=== PATIENT | female | born 1950 | race Caucasian/White ===

== ENCOUNTER 2016-03-09 12:35 | Emergency (ER) | payer BC, OTHER ==
[~2016-03-09] VITALS: Ht 152.4 cm; Wt 68.0 kg
[2016-03-09] MEDS ORDERED: ACETAMINOPHEN 500 MG TAB PO STA (12:43)
[2016-03-09] MEDS ORDERED: SOD CHLORIDE 0.9% 500 ML IV STA (12:43)
[2016-03-09 13:27] VITALS: Ht 152.4 cm; Wt 68.0 kg
[2016-03-09 13:49] LABS: BASOPHIL # 0.1 10^3/ul (0.0-0.1); BASOPHILS % 0.8 % (0.0-2.0); EOSINOPHILS % 0.1 % (0.0-7.0); HEMATOCRIT 35.5 % (37.0-47.0); LYMPHOCYTES # 0.9 10^3/ul (0.8-2.9); LYMPHOCYTES % 13.1 % (15.0-51.0); MEAN CORPUSCULAR HEMOGLOBIN 30.3 pg (29.0-33.0); MEAN CORPUSCULAR HGB CONC 33.7 g/dl (32.0-37.0); MEAN PLATELET VOLUME 7.6 fl (7.4-10.4); MONOCYTE # 0.8 10^3/ul (0.3-0.9); MONOCYTES % 11.8 % (0.0-11.0); NEUTROPHIL # 5.3 10^3/ul (1.6-7.5); NEUTROPHILS % 74.2 % (39.0-77.0); PLATELET COUNT 207 10^3/UL (140-440); RED BLOOD COUNT 3.95 10^6/ul (4.20-5.40); RED CELL DISTRIBUTION WIDTH 13.2 % (11.5-14.5); UNCORRECTED WBC 7.1 10^3/ul (4.8-10.8); WHITE BLOOD COUNT 7.1 10^3/ul (4.8-10.8)
[2016-03-09] MEDS ORDERED: METF500T4 PO (13:49)
[2016-03-09] MEDS ORDERED: LISI20TA11 PO (13:50)
[2016-03-09] MEDS ORDERED: SIMV20TA97 PO (13:50)
[2016-03-09 13:51] LABS: CONDITION 1
[2016-03-09] MEDS ORDERED: SERT50TA6 PO (13:51)
[2016-03-09] MEDS ORDERED: ASPI-664 PO (13:51)
--- NOTE | 2016-03-09 13:55 | RADRPT ---
PROCEDURE: XR Chest. CLINICAL INDICATION: Syncope TECHNIQUE: Chest AP portable COMPARISON: None available FINDINGS: The mediastinal structures are unremarkable. There is calcification of the thoracic aorta (consiste nt with atherosclerosis). The heart is normal in size and configuration. The pulmonary vascularity is normal. There is mild bibasilar subsegmental atelectasis. No consolidation is identified. The pleural spaces are unremarkable. There are senescent changes of the axial skeleton. IMPRESSION: Calcification of the thoracic aorta (consistent with atherosclerosis). Mild bibasilar subsegmental atelectasis RPTAT: HGDB .Gilles Jung MD, Date Time Electronically viewed and signed by .Gilles Jung MD, on 03/09/2016 13:54 .B/
[2016-03-09 13:57] LABS: CHLORIDE 95 mmol/L (97-110); POTASSIUM 3.9 mmol/L (3.5-5.1); SODIUM 132 mmol/L (135-144)
[2016-03-09 14:00] LABS: ANION GAP 16 (8-16); BLOOD UREA NITROGEN 16 mg/dl (7-20); CARBON DIOXIDE 25 mmol/L (21-31); CREATININE 0.92 mg/dl (0.44-1.00)
[2016-03-09 14:01] LABS: CALCIUM 8.4 mg/dl (8.4-10.2); GLUCOSE 131 mg/dl (70-220)
[2016-03-09 14:17] LABS: TROPONIN-I < 0.012 ng/ml (0.00-0.12)
[2016-03-09] MEDS ORDERED: OSLT75C PO (14:43)
[2016-03-09] MEDS ORDERED: IBUP800T25 PO (14:43)
--- NOTE | 2016-03-09 16:42 | ERD ---
ER Documentation Chief Complaint Date/Time DATE: 03/09/16 TIME: 16:33 Chief Complaint NEAR SYNCOPE TODAY AT URGENT CARE HPI 65-year-old female. Performing Artist use. The patient states that for several days she had had subjective fevers, myalgias and generalized malaise. Dry nonproductive cough. The patient states that she felt like she might have passed out while at urgent care, 911 was called. She denied any prodrome of chest pain, no shortness of breath no headache. She states that she feels well currently. She has a low-grade temperature. No recent travel, immobilization, calf swelling or pain. ROS All systems reviewed and are negative except as per history of present illness. Medications Home Meds Active Scripts Oseltamivir Phosphate* (Tamiflu*) 75 Mg Capsule, 75 MG PO BID for 5 Days, CAP Prov:KAT FLETCHER MD 03/09/16 Ibuprofen* (Motrin*) 800 Mg Tab, 800 MG PO Q6H Y for PAIN AND OR ELEVATED TEMP, #30 TAB Prov:KAT FLETCHER MD 03/09/16 Reported Medications Sertraline Hcl* (Sertraline Hcl*) 50 Mg Tablet, 50 MG PO DAILY, #30 TAB 03/09/16 Aspirin* (Aspirin* EC) 81 Mg Tablet.dr, 81 MG PO DAILY, TAB 03/09/16 Simvastatin* (Zocor*) 20 Mg Tablet, 20 MG PO QHS, #30 TAB 03/09/16 Lisinopril* (Lisinopril*) 20 Mg Tablet, 20 MG PO DAILY, #30 TAB 03/09/16 Metformin* (Glucophage*) 500 Mg Tab, 500 MG PO BID, #30 TAB 03/09/16 Allergies Allergies: Coded Allergies: No Known Allergy (Unverified , 03/09/16) FmHx Family History: No diabetes Physical Exam Vitals Vital Signs Date Time Temp Pulse Resp B/P Pulse Ox O2 Delivery O2 Flow Rate FiO2 03/09/16 13:27 100.5 92 14 147/70 96 Physical Exam General: Well developed, well nourished, no acute distress Head: Normocephalic, atraumatic. Eyes: Pupils equally reactive, EOM intact ENT: Moist mucous membranes Neck: Supple, no lymphadenopathy Respiratory: Lungs clear bilaterally, no distress Cardiovascular: RRR, no murmurs, rubs, or gallops Abdominal: Soft, non-tender, non-distended, no peritoneal signs : Deferred MSK: No edema, no unilateral swelling, 5/5 strength Neurologic: Alert and oriented, moving all extremities, normal speech, no focal weakness, no cerebellar signs Skin: No rash Psych: Normal mood Result Diagram: 03/09/16 1338 03/09/16 1338 Results 24 hrs Laboratory Tests Test 03/09/16 13:38 Anion Gap 16 Basophils # 0.110^3/ul Basophils % 0.8% Blood Urea Nitrogen 16mg/dl Calcium Level 8.4mg/dl Carbon Dioxide Level 25mmol/L Chloride Level 95mmol/L Creatinine 0.92mg/dl Eosinophils # 0.010^3/ul Eosinophils % 0.1% Glucose Level 131mg/dl Hematocrit 35.5% Hemoglobin 12.0g/dl Lymphocytes # 0.910^3/ul Lymphocytes % 13.1% Mean Corpuscular Hemoglobin 30.3pg Mean Corpuscular Hemoglobin Concent 33.7g/dl Mean Corpuscular Volume 90.0fl Mean Platelet Volume 7.6fl Monocytes # 0.810^3/ul Monocytes % 11.8% Neutrophils # 5.310^3/ul Neutrophils % 74.2% Nucleated Red Blood Cells # 0.010^3/ul Nucleated Red Blood Cells % 0.0/100WBC Platelet Count 65658^3/UL Potassium Level 3.9mmol/L Red Blood Count 3.9510^6/ul Red Cell Distribution Width 13.2% Sodium Level 132mmol/L Troponin I < 0.012ng/ml White Blood Count 7.110^3/ul Current Medications Medications (Trade) Dose Ordered Sig/Nilsa Route PRN Reason Start Time Stop Time Status Last Admin Dose Admin Sodium Chloride (NS) 500 ml @ 500 mls/hr Q1H STAT IV 03/09/16 12:43 03/09/16 13:42 DC 03/09/16 14:26 Acetaminophen (Tylenol Tab) 1,000 mg ONCE STAT PO 03/09/16 12:43 03/09/16 12:45 DC 03/09/16 14:27 Procedures/MDM EKG, MONITORS, & DIAGNOSTIC IMAGING: EKG: I reviewed and interpreted a 12-lead EKG. Rhythm: Normal sinus rhythm Ectopy: None Intervals: No abnormalities ST segments: No elevations or depressions T waves: No contiguous inversions Chest x-ray: I reviewed and interpreted a 1 view of the chest Mediastinum: No enlargement Cardiac silhouette: No cardiomegaly Airspace: Clear lung ronquillo bilaterally without evidence of pneumothorax Bones: No evidence of fracture LAB INTERPRETATION: No leukocytosis, negative troponin MEDICAL DECISION MAKING: The patient's clinical presentation is very consistent with an acute viral syndrome. The patient does not exhibit any clinical signs or symptoms concerning for serious bacterial infection or systemic illness. Based on history and clinical exam findings the patient does not appear to have evidence of pneumonia, strep pharyngitis, urinary tract infection, bacteremia, sepsis, or meningitis. The patient also had an episode of possible near syncope though the patient states that she feels well currently. I do not believe there is a serious etiology to the patient's near syncope. The patient's presentation is very consistent with viral syndrome. However, given the patient's age, history of diabetes the patient will benefit from Tamiflu initiation. ER COURSE: The patient was given antipyretics and continues to be well-appearing her symptoms are improved and the patient states comfort going home. I kept the patient and/or family informed of laboratory and diagnostic imaging results throughout the emergency room course. DISPOSITION PLAN: We discussed follow up with the patient's primary care doctor within 24 to 48 hours as needed. We also discussed return to the emergency room for worsening symptoms or worsening condition. Discharge Medications: Tamiflu, Motrin Departure Diagnosis: Primary Impression: Viral syndrome Additional Impression: Near syncope Condition: Stable Patient Instructions: Influenza (Adult), Near Syncope, Unknown Referrals: [facility] () Usted se sharma hecho un examen mdico de control que le indica que no est en boby condicin que requiera tratamiento urgente en el Departamento de Emergencia. Un estudio ms profundo y el tratamiento de lee condicin pueden esperar sin ningn riesgo hasta que usted sea atendida/o en el consultorio de lee mdico o boby cl edi. Es responsabilidad suya arreglar boby neena para el seguimiento del tata. MANEJO DE CONDICIONES NO URGENTES EN EL FUTURO 1) Si usted tiene un mdico de atencin primaria: Usted debera llamar a lee mdico de atencin primaria antes de venir al departamento de emergencia. Despus de las horas de consultorio, lee doctor o lee asociado/a est disponible por telfono. El mdico o enfermero de barry en el servicio telefnico puede asesorarle por alina medio para atender el problema, o tata contrario se puede programar boby neena. 2) Si usted no tiene un mdico de atencin primaria: Llame al mdico o clnica de referencia que aparece abajo kathy las horas de consultorio para hacer boby neena para que le vean. CLINICAS: [facility] [phone] [facility] [phone] [facility] [phone] [facility] [phone] [facility] [phone] [facility] [phone] [address] [facility]. [facility] () Usted se sharma hecho un examen mdico de control que le indica que no est en boby condicin que requiera tratamiento urgente en el Departamento de Emergencia. Un estudio ms profundo y el tratamiento de lee condicin pueden esperar sin ningn riesgo hasta que usted sea atendida/o en el consultorio de lee mdico o boby cl edi. Es responsabilidad suya arreglar bboy neena para el seguimiento del tata. MANEJO DE CONDICIONES NO URGENTES EN EL FUTURO 1) Si usted tiene un mdico de atencin primaria: Usted debera llamar a lee mdico de atencin primaria antes de venir al departamento de emergencia. Despus de las horas de consultorio, lee doctor o lee asociado/a est disponible por telfono. El mdico o enfermero de barry en el servicio telefnico puede asesorarle por alina medio para atender el problema, o tata contrario se puede programar boby neena. 2) Si usted no tiene un mdico de atencin primaria: Llame al mdico o condado institucions de referencia que aparece abajo kathy las horas de consultorio para hacer boby neena para que le vean. SI USTED NO PUEDE PAGAR PARA DURAN UN MEDICO puede ir a: [facility] [id number] [place] [address] [facility] [address] [place] [address] [facility] [address] [place] [address] [facility] [address] [place], [place] [id number] Additional Instructions: Llame al doctor nombrado abajo (Referral Sources) MAANA y carole boby NEENA PARA DENTRO DE BOBY SEMANA. Dgale a la secretaria que nosotros le instruimos hacer esta neena.Avise o llame si lee condicin se empeora antes de la neena. KAT FLETCHER MD Mar 09, 2016 16:42
== END 2016-03-09 15:01 | disposition home or self-care (01) ==
LOC: E/R 12:35
DX: B34.9 Viral infection, unspecified (principal); Z79.82 Long term (current) use of aspirin
CPT/HCPCS: 36415; 71010; 80048; 84484; 85025; 93005; 99285; J7040